=== PATIENT | female | born 1975 | race Caucasian/White ===

== ENCOUNTER 2017-11-23 14:09 | Emergency (ER) | payer MEDICAID ==
--- NOTE | 2017-11-23 14:49 | EDPHY ---
H & P Stated Complaint: Pt. states sharp palpatations when heart racing aprox 1015 today Source: Patient Exam Limitations: No limitations - Personal History LMP (Females 10-55): 22-28 Days Ago - Medical/Surgical History Hx Asthma: No Hx Chronic Respiratory Disease: No Hx Diabetes: No Hx Cardiac Disease: No Hx Renal Disease: No Hx Cirrhosis: No Hx Alcoholism: No Hx HIV/AIDS: No Hx Splenectomy or Spleen Trauma: No Other PMH: TONSILS,C SEC X 1 LYMPHECTOMY NECK - Family History Significant Family History: No pertinent family hx. No: Heart disease, Vascular disease - Social History Smoking Status: Never smoked Alcohol Use: Rarely Drug Use: None Time Seen by Provider: 11/23/17 14:23 HPI/ROS: While at rest this morning this patient developed left posterior upper thoracic pain described as sharp and stabbing 8/10 intensity, abrupt in onset lasting 2 min. Since that time she has had steady 4/10 achy discomfort in the same region. She has associated left arm paresthesias and feeling of vacillating hot and cold sensations to the left arm. Patient also describes heart palpitations with the rapid heart rate corresponding to the onset of her chest pain. After conversation with her application systems engineer she came in for further evaluation. She reports that she has had intermittent heart palpitations describes a brief racing heart for 3 months has been seen by Dr. Costello, a application systems engineer with instructions to increase her exercise and work on weight loss which patient has complied with with reduction episodes of intense palpitations but she has had persistent mild tachycardia with sinus tach over little over 100 recently. She had a follow up with Dr. Costello this week with echo and Holter monitor pending. The patient has also been seen by her primary care physician, Dr. Esteban with normal TSH last week but an elevated CHELSEY level in the setting of skin dermatitis, referred to Dr. Laguna (sales office administrator) & treated with a 5 day prednisone taper that she finished a few days ago. ROS: Constitutional: No fevers or chills Neuro: Paresthesias to the left arm since the onset of pain today. No other focal symptoms. HEENT: Mild sore throat this week without other HEENT complaints pulmonary: No cough shortness of breath. She reports slight tight feeling in her chest that worsens with a deep breath corresponding to her left upper posterior thoracic pain today. Cardiovascular: No lightheadedness today. No lower extremity swelling. GI: No nausea vomiting or abdominal pain. She has noticed any obvious increase in belching heartburn. Integumentary: No diaphoresis. Skin rash resolves with prednisone 10 point review of symptoms is performed and otherwise negative with exception of pertinent positives and negatives listed in HPI and ROS (Tin Horner) - Medical/Surgical History PMH: Recent elevated CHELSEY Heart palpitations intermittently over the last 2 months. (Tin Horner) - Physical Exam Exam: General Appearance: Alert, no distress. Eyes: Pupils equal and round no pallor or injection. ENT, Mouth: Mucous membranes moist. Respiratory: There are no retractions, lungs are clear to auscultation. Cardiovascular: Regular rate and rhythm. No murmur gallop rub. No peripheral edema. Gastrointestinal: Abdomen is soft and nontender, no masses, bowel sounds normal. Neurological: GCS 15 with no focal deficits. Skin: Warm and dry, no rashes. Musculoskeletal: Neck is supple nontender. However she does have tight mildly tender trapezius left more than right Extremities are symmetrical, full range of motion. Psychiatric: Mood and affect are normal DIFFERENTIAL DIAGNOSIS: After history and physical exam differential diagnosis was considered for GERD with esophageal spasm given recent prednisone, pleurisy , pulmonary embolism, myocardial ischemic disease, bronchitis, pneumonia, pneumothorax (Tin Horner) Constitutional: Initial Vital Signs Temperature (C) 36.9 C 11/23/17 14:14 Heart Rate 104 H 11/23/17 14:14 Respiratory Rate 16 11/23/17 14:14 Blood Pressure 163/112 H 11/23/17 14:14 O2 Sat (%) 98 11/23/17 14:14 O2 Delivery Mode Room Air Allergies/Adverse Reactions: No Known Allergies Allergy (Verified 11/23/17 14:13) Home Medications: Medication Instructions Recorded No Medications [No Known] 09/15/11 Medical Decision Making - Diagnostics Imaging: I viewed and interpreted images myself - Diagnostics EKG Interpretation: 12 lead EKG performed shortly after arrival at 2:20 p.m. Reveals sinus rhythm at 96 Intervals: Normal throughout [place]: Normal throughout ST segments: Normal throughout Overall assessment normal EKG (Tin Horner) Imaging Results: Imaging Impressions Chest X-Ray 11/23/17 14:42 Impression: Normal chest. Two view chest x-ray: Normal by my interpretation (Tin Horner) Chest CT angiogram reviewed by me and discussed with Dr. Pozo shows no evidence of pulmonary embolus. Aorta and great vessels are normal. No pneumothorax or pneumonia (Chilo Pedroza) ED Course/Re-evaluation: IV, monitor Reviewed EKG-normal Maalox p.o. And Levsin, I discussed this case with Dr. Pedroza at 3:00 p.m. With labs pending and response to treatment pending. Discussion: Patient with chest pain and some musculoskeletal findings on exam recent prednisone with differential diagnosis that includes potential esophagitis, musculoskeletal source, rule out pulmonary embolism with normal EKG and chest x-ray so far in her workup with labs pending. (Tin Horner) I took over patient's care at 3:[address] Horner. D-dimer comes back mildly elevated. Other criteria for pulmonary embolus include heart rate greater than 100. EKG reviewed by me is normal other than rate of 96 After discussion with the patient on risks benefits CT angiogram chest is ordered. The nurse's bring me a urine dip result with 1+ leukocytes. The urine is sent to [place] for microscopy. Re-evaluation at 4:20 p.m.. Patient and I discussed imaging and lab results. We discussed treatment plan including criteria for return importance of follow- up and further evaluation. She expresses understanding and agreement (Chilo Pedroza) Differential Diagnosis: I considered acute coronary syndrome, pulmonary embolus, pneumonia, pneumothorax. This may be musculoskeletal in etiology (Chilo Pedroza) - Data Points Laboratory Results: 11/23/17 11/23/17 15:05 14:56 POC Sodium 143 mEq/L mEq/L (135-145) POC Potassium 3.3 mEq/L mEq/L (3.3-5.0) POC Chloride 105.0 mEq/L mEq/L (97-110) POC Total CO2 24 mEq/L mEq/L (22-31) POC BUN 8 mg/dL mg/dL (7-23) POC Creatinine 0.4 mg/dL L mg/dL (0.6-1.0) POC Glucose 102 mg/dL H mg/dL (70-100) POC Calcium 9.7 mg/dL mg/dL (8.5-10.4) POC Troponin I 0.00 ng/mL ng/mL (0.00-0.08) Medications Given: Discontinued Medications Al Hydroxide/Mg Hydroxide (Maalox Susp) 30 ml PO EDNOW ONE Stop: 11/23/17 15:11 Last Admin: 11/23/17 15:27 Dose: 30 ml Hyoscyamine Sulfate (Levsin, Hyomax-Sl) 0.25 mg PO EDNOW ONE Stop: 11/23/17 15:11 Last Admin: 11/23/17 15:22 Dose: 0.25 mg Sodium Chloride (Ns) 1,000 mls @ 0 mls/hr IV ONCE ONE; Wide Open PRN Reason: Protocol Stop: 11/23/17 14:55 Last Admin: 11/23/17 15:21 Dose: 1,000 mls Point of Care Test Results: CBC CBC Collection Date 11/23/17 CBC Collection Time 14:48 WBC 8.6 RBC 4.56 HGB 10.9 HCT 32.5 PLT 148 Neut # 2.2 Neut 46.4 LYMPH # 0.9 LYMPH 14.7 Other WBC # 0.2 Other WBC 3.2 MCV 82.5 Chemistry 11/23/17 11/23/17 15:05 14:56 POC Sodium 143 mEq/L mEq/L (135-145) POC Potassium 3.3 mEq/L mEq/L (3.3-5.0) POC Chloride 105.0 mEq/L mEq/L (97-110) POC Total CO2 24 mEq/L mEq/L (22-31) POC BUN 8 mg/dL mg/dL (7-23) POC Creatinine 0.4 mg/dL L mg/dL (0.6-1.0) POC Glucose 102 mg/dL H mg/dL (70-100) POC Calcium 9.7 mg/dL mg/dL (8.5-10.4) POC Troponin I 0.00 ng/mL ng/mL (0.00-0.08) D-Dimer D-Dimer Collection Date 11/23/17 D-Dimer Collection Time 14:48 D-Dimer (ng/ml) 457ng/ml Urine Collection Date 11/23/17 Collection Time 15:40 HCG Results Negative Urine Dip Collection Date 11/23/17 Collection Time 15:40 Specific [place] (1.002-1.030) 1.010 PH (5.0-7.5) 6.5 Leukocytes (Negative) 1+ Nitrites (Negative) Negative Protein (Negative) Negative Glucose (Negative) Negative Ketones (Negative) Negative Urobilnogen (0.2-1.0 EU) 0.2 Bilirubin (Negative) Negative Blood (Negative) Negative Departure - Departure Disposition: Home, Routine, Self-Care Clinical Impression: Palpitations Condition: Good Instructions: Heart Palpitations (ED) Additional Instructions: Your workup today is normal. Return for worsening symptoms. Continue workup with application systems engineer. Call back this evening for urine results. Your urine was sent to [facility] for examination. [phone] Referrals: Malik Bustillos MD [Primary Care Provider] - 2-3 days, if not improved
[2017-11-23] MEDS ORDERED: NS 1,000 ML IV ONE (14:54)
--- NOTE | 2017-11-23 14:56 | CPEKG ---
Test Reason : OPEN Blood Pressure : / mmHG Vent. Rate : 096 BPM Atrial Rate : 095 BPM P-R Int : 146 ms QRS Dur : 081 ms QT Int : 353 ms P-R-T Axes : 064 061 030 degrees QTc Int : 447 ms Sinus rhythm Confirmed by Tin Horner ([id number]) on 11/23/2017 2:56:13 PM Referred By: Confirmed By:Tin Horner
[2017-11-23] MEDS ORDERED: HYOSCYAMINE SULFATE 0.125 MG TAB PO ONE (15:10)
[2017-11-23] MEDS ORDERED: MAG HYDROX/AL HYDROX/SIMETH 30 ML UDCUP PO ONE (15:10)
[2017-11-23] MEDS ORDERED: IOPAMIDOL (ISOVUE 370) 100 ML BTL IV ONE (15:35)
[2017-11-23 16:51] VITALS: BP 112/88
== END 2017-11-23 16:40 | disposition home or self-care (01) ==
LOC: CED 14:09
DX: R00.2 Palpitations (principal); M54.6 Pain in thoracic spine; R79.1 Abnormal coagulation profile; Z77.120 Contact with and (suspected) exposure to mold (toxic)
CPT/HCPCS: 71046-PO; 71275-PO; 80048-PO; 80305; 80307-PO; 84484-PO; Q9967

== ENCOUNTER → 2018-02-22 | Outpatient (CLI) | payer MEDICAID | LOC: FCPNEURO 20:00 | PROVIDERS: ATTEND Student in an Organized Health Care Education/Training Program | DX: G47.33 Obstructive sleep apnea (adult) (pediatric) (principal) ==